=== PATIENT | male | born 1955 | race African-American/Black ===

== ENCOUNTER 2023-10-16 11:55 | Inpatient (IN) | payer OTHER ==
[2023-10-16 12:57] LABS: #Basophils 0.09 10x3/uL (0.0-0.2); #Eosinphils 0.19 10x3/uL (0.0-0.5); #Monocytes 0.62 10x3/uL (0.0-1.1); #Neutrophils 6.79 10x3/uL (1.5-8.4); %Basophils 0.9 % (0.0-2.0); %Eosinophils 1.8 % (0.0-6.0); %Lymphocytes 25.9 % (18.0-47.0); %Neutrophils 65.2 % (40.0-75.0); Hematocrit 36.9 % (38.8-50.0); Hemoglobin 12.8 g/dL (13.5-17.5); Mean Corpuscular HGB CONC 34.7 g/dL (32.0-36.0); Mean Corpuscular Hemoglobin 30.6 pg (27.0-33.0); Mean Corpuscular Volume 88.3 fl (81.2-95.1); Mean Platelet Volume 12.4 fl (7.4-10.4); Platelet Count 297 10x3/uL (150-450); RBC Distribution Width 12.8 % (11.5-14.5); Red Blood Cell (RBC) Count 4.18 10x6/uL (4.32-5.72); White Blood Cell (WBC) Count 10.4 10x3/uL (3.5-10.5)
[2023-10-16 13:19] LABS: ALT (SGPT) 19 U/L (8-55); AST (SGOT) 25 U/L (5-34); Albumin 2.5 g/dL (3.4-4.8); Alkaline Phosphatase 70 U/L (40-110); Anion Gap 12 mmol/L (10-20); BUN (Urea Nitrogen) 23 mg/dL (8.4-25.7); Bilirubin, Total 0.6 mg/dL (0.2-1.2); Calc. Creatinine Clearance 0 mL/min (70-130); Calcium 8.5 mg/dL (7.8-10.44); Carbon Dioxide 22 mmol/L (23-31); Chloride 107 mmol/L (98-107); Estimated GFR 56; Globulin 3.3 g/dL (2.4-3.5); Glucose 125 mg/dL (80-115); Protein, Total 5.8 g/dL (5.8-8.1); Sodium 137 mmol/L (136-145)
[2023-10-16 13:22] LABS: Troponin I 0.015 ng/mL (< 0.028)
[2023-10-16] MEDS ORDERED: Labetalol HCl 100 MG/20 ML VIAL SLOW IVP PRN (14:59)
[2023-10-16] MEDS ORDERED: Moisturizing Cream (Eucerin) 113 GM JAR TOP PRN (14:59)
[2023-10-16] MEDS ORDERED: Ondansetron ODT 4 MG TAB PO PRN (14:59)
[2023-10-16] MEDS ORDERED: Artificial Tear Sol 15 ML BOT EA EYE PRN (14:59)
[2023-10-16] MEDS ORDERED: Benzocaine/Menthol 1 LOZ LOZ PO PRN (14:59)
[2023-10-16] MEDS ORDERED: Ondansetron PF 4 MG/2 ML Vial IVP PRN (14:59)
[2023-10-16] MEDS ORDERED: Benzonatate 100 MG CAP PO PRN (14:59)
[2023-10-16] MEDS ORDERED: Acetaminophen 650 MG Suppository PR PRN (14:59)
[2023-10-16 15:21] LABS: INR-International Normal Ratio 0.9; PTT 25.4 sec (22.0-33.0); Prothrombin Time 10.1 sec (9.5-12.1)
[2023-10-16] MEDS ORDERED: Dextrose 5% in Water 1,000 ML IV PRN (17:48)
[2023-10-16] MEDS ORDERED: Dextrose 50% Abboject 50 ML SYRINGE SLOW IVP PRN (17:48)
[2023-10-16] MEDS ORDERED: Glucagon 1 MG/ML KIT IM PRN (17:48)
[2023-10-16] MEDS: Aspirin 325 mg Enteric Coated Tablet PO SCH (18:22)
[2023-10-16 18:54] VITALS: BMI 35.2
[2023-10-16 19:59] LABS: Troponin I 0.016 ng/mL (< 0.028)
[2023-10-16 20:04] LABS: Hemoglobin A1c 9.2 % (4.0-6.0)
[2023-10-16] MEDS: Insulin NPH Human Isophane 100 UNITS/ML (10 ML VIAL) SC SCH (20:22)
[2023-10-16] MEDS: Insulin Regular 300 UNITS/3 ML VIAL SC PRN (20:22)
[2023-10-16] MEDS: Lisinopril 20 MG TAB PO SCH (20:24)
[2023-10-16] MEDS: Atorvastatin Calcium 40 MG TAB PO SCH (20:25)
[2023-10-16] MEDS: levETIRAcetam 500 MG TAB PO SCH (20:25)
[2023-10-16] MEDS ORDERED: Atorvastatin Calcium 40 MG TAB PO SCH (21:00)
[2023-10-16] MEDS ORDERED: Famotidine 20 MG TAB PO SCH (21:00)
[2023-10-16] MEDS ORDERED: Famotidine/PF 20 mg/2ml Vial SLOW IVP SCH (21:00)
[2023-10-17 07:07] LABS: Anion Gap 13 mmol/L (10-20); BUN (Urea Nitrogen) 21 mg/dL (8.4-25.7); Calc. Creatinine Clearance 84 mL/min (70-130); Calcium 8.7 mg/dL (7.8-10.44); Carbon Dioxide 23 mmol/L (23-31); Cardiac Risk 7.1 (Less than 4.5); Chloride 107 mmol/L (98-107); Cholesterol 283 mg/dl (< 200 Desired); Estimated GFR 62; Glucose 132 mg/dL (80-115); HDL Cholesterol 40 mg/dL (>60 Neg Risk); LDL Cholesterol, Calculated 213 mg/dL; Potassium 3.7 mmol/L (3.5-5.1); Sodium 139 mmol/L (136-145); Triglycerides 150 mg/dL (Less than 150)
[2023-10-17] MEDS: Enoxaparin 40 MG (0.4 mL) SYRINGE SC SCH (09:42)
[2023-10-17] MEDS: hydrALAZINE 25 MG TAB PO SCH (09:43)
[2023-10-17] MEDS: levETIRAcetam 500 MG TAB PO SCH (09:43)
[2023-10-17] MEDS: Hydrochlorothiazide 25 MG TAB PO SCH (09:43)
[2023-10-17] MEDS: Aspirin 81 mg Enteric Coated Tablet PO SCH (09:43)
[2023-10-17] MEDS: Amlodipine 10 MG TAB PO SCH (09:43)
[2023-10-17] MEDS: Furosemide 40 MG TAB PO SCH (09:44)
[2023-10-17] MEDS: metFORMIN 500 MG TAB PO SCH (09:44)
[2023-10-17] MEDS: hydrALAZINE 20 MG/ML VIAL SLOW IVP PRN (17:28)
[2023-10-17] MEDS: Rosuvastatin 20 MG TAB PO SCH (21:37)
[2023-10-18] MEDS: Insulin Regular 300 UNITS/3 ML VIAL SC PRN (00:36)
[2023-10-18] MEDS: Acetaminophen 325 MG TAB PO PRN (01:34)
[2023-10-18 05:26] LABS: Anion Gap 12 mmol/L (10-20); BUN (Urea Nitrogen) 28 mg/dL (8.4-25.7); Calc. Creatinine Clearance 65 mL/min (70-130); Calcium 8.3 mg/dL (7.8-10.44); Carbon Dioxide 23 mmol/L (23-31); Chloride 110 mmol/L (98-107); Estimated GFR 45; Glucose 101 mg/dL (80-115); Potassium 3.9 mmol/L (3.5-5.1); Sodium 141 mmol/L (136-145)
[2023-10-18] MEDS: Insulin NPH Human Isophane 100 UNITS/ML (10 ML VIAL) SC SCH (21:19)
[2023-10-19] MEDS: Hydrochlorothiazide 25 MG TAB PO SCH (09:15)
[2023-10-19] MEDS: hydrALAZINE 25 MG TAB PO SCH (20:58)
[2023-10-20 06:10] LABS: #Basophils 0.11 10x3/uL (0.0-0.2); #Eosinphils 0.35 10x3/uL (0.0-0.5); #Monocytes 0.87 10x3/uL (0.0-1.1); #Neutrophils 6.48 10x3/uL (1.5-8.4); %Eosinophils 3.2 % (0.0-6.0); %Lymphocytes 28.2 % (18.0-47.0); %Neutrophils 59.2 % (40.0-75.0); Hematocrit 34.3 % (38.8-50.0); Hemoglobin 11.5 g/dL (13.5-17.5); Mean Corpuscular HGB CONC 33.5 g/dL (32.0-36.0); Mean Corpuscular Hemoglobin 30.4 pg (27.0-33.0); Mean Corpuscular Volume 90.7 fl (81.2-95.1); Platelet Count 293 10x3/uL (150-450); RBC Distribution Width 13.2 % (11.5-14.5); Red Blood Cell (RBC) Count 3.78 10x6/uL (4.32-5.72); White Blood Cell (WBC) Count 10.9 10x3/uL (3.5-10.5)
[2023-10-20 06:16] LABS: Anion Gap 11 mmol/L (10-20); BUN (Urea Nitrogen) 26 mg/dL (8.4-25.7); Calc. Creatinine Clearance 72 mL/min (70-130); Calcium 8.5 mg/dL (7.8-10.44); Carbon Dioxide 23 mmol/L (23-31); Chloride 110 mmol/L (98-107); Estimated GFR 52; Glucose 143 mg/dL (80-115); Potassium 3.9 mmol/L (3.5-5.1); Sodium 140 mmol/L (136-145)
[2023-10-20] MEDS ORDERED: Polyethylene Glycol 3350 17 GM Packet PO PRN (11:49)
[2023-10-20] MEDS: Clopidogrel Bisulfate 75 MG TAB PO SCH (12:27)
[2023-10-20] MEDS: Senokot S 8.6-50 MG TAB PO SCH (22:53)
[2023-10-20] MEDS: Famotidine 20 MG TAB PO SCH (22:54)
[2023-10-21] MEDS: Clopidogrel Bisulfate 75 MG TAB PO SCH (11:09)
[2023-10-21] MEDS: Heparin 5,000 UNITS/ML VIAL SC SCH (11:10)
[2023-10-22 03:56] LABS: #Basophils 0.14 10x3/uL (0.0-0.2); #Eosinphils 0.35 10x3/uL (0.0-0.5); #Neutrophils 4.58 10x3/uL (1.5-8.4); %Basophils 1.5 % (0.0-2.0); %Eosinophils 3.7 % (0.0-6.0); %Lymphocytes 38.6 % (18.0-47.0); %Monocytes 7.4 % (0.0-10.0); %Neutrophils 48.7 % (40.0-75.0); Hematocrit 35.5 % (38.8-50.0); Hemoglobin 11.2 g/dL (13.5-17.5); Mean Corpuscular HGB CONC 31.5 g/dL (32.0-36.0); Mean Corpuscular Hemoglobin 29.6 pg (27.0-33.0); Mean Corpuscular Volume 93.9 fl (81.2-95.1); Mean Platelet Volume 12.6 fl (7.4-10.4); Platelet Count 269 10x3/uL (150-450); RBC Distribution Width 13.2 % (11.5-14.5); Red Blood Cell (RBC) Count 3.78 10x6/uL (4.32-5.72); White Blood Cell (WBC) Count 9.4 10x3/uL (3.5-10.5)
[2023-10-22 04:02] LABS: Anion Gap 11 mmol/L (10-20); BUN (Urea Nitrogen) 28 mg/dL (8.4-25.7); Calc. Creatinine Clearance 69 mL/min (70-130); Calcium 8.2 mg/dL (7.8-10.44); Carbon Dioxide 22 mmol/L (23-31); Chloride 108 mmol/L (98-107); Estimated GFR 49; Glucose 191 mg/dL (80-115); Sodium 137 mmol/L (136-145)
[2023-10-22] MEDS: Insulin Regular 300 UNITS/3 ML VIAL SC PRN (17:29)
[2023-10-23] MEDS: Insulin NPH Human Isophane 100 UNITS/ML (10 ML VIAL) SC SCH (09:39)
[2023-10-23 14:45] LABS: Troponin I 0.013 ng/mL (< 0.028)
[2023-10-23 14:51] LABS: Anion Gap 12 mmol/L (10-20); BUN (Urea Nitrogen) 29 mg/dL (8.4-25.7); Calc. Creatinine Clearance 62 mL/min (70-130); Carbon Dioxide 23 mmol/L (23-31); Chloride 107 mmol/L (98-107); Estimated GFR 43; Glucose 232 mg/dL (80-115); Magnesium 1.9 mg/dL (1.6-2.6); Potassium 4.3 mmol/L (3.5-5.1); Sodium 138 mmol/L (136-145)
[2023-10-23 16:03] VITALS: TEMP 98.6
[2023-10-23 23:33] VITALS: BP 151/70
== END 2023-10-23 23:30 | disposition short-term general hospital (02) | DRG 65 ==
LOC: EEVIPCON 11:55 → CSHERS 11:55 → CSHTELE 15:58
PROVIDERS: ADMIT Family Medicine; ATTEND Internal Medicine
DX: I63.9 Cerebral infarction, unspecified (principal); N17.9 Acute kidney failure, unspecified; E78.5 Hyperlipidemia, unspecified; E11.40 Type 2 diabetes mellitus with diabetic neuropathy, unspecified; N18.31 Chronic kidney disease, stage 3a; E11.22 Type 2 diabetes mellitus with diabetic chronic kidney disease; G40.909 Epilepsy, unspecified, not intractable, without status epilepticus; I12.9 Hypertensive chronic kidney disease with stage 1 through stage 4 chronic kidney disease, or unspecified chronic kidney disease; E66.9 Obesity, unspecified; Z68.35 Body mass index [BMI] 35.0-35.9, adult; D53.9 Nutritional anemia, unspecified; E11.51 Type 2 diabetes mellitus with diabetic peripheral angiopathy without gangrene; Z86.73 Personal history of transient ischemic attack (TIA), and cerebral infarction without residual deficits; Z79.84 Long term (current) use of oral hypoglycemic drugs; Z79.82 Long term (current) use of aspirin; Z79.899 Other long term (current) drug therapy; Z98.42 Cataract extraction status, left eye; Z98.41 Cataract extraction status, right eye
CPT/HCPCS: 36415; 36416; 70450; 70551; 74230; 80048; 80053; 80061; 83036; 83735; 84443; 84484; 85025; 85610; 85730; 93005; 93306; 93880; J0360; J1644; J1650; J1815